=== PATIENT | male | born 1960 | race Caucasian/White ===

== ENCOUNTER 2018-06-18 16:46 | Observation (INO) ==
[2018-06-18] MEDS ORDERED: Vancomycin Inj 1,000 MG in Sodium Chlor 0.9% Inj 250 ML IV.SIG ONE (17:46)
[2018-06-18] MEDS ORDERED: Morphine Inj 4 MG/ML Vial IV.PUSH ONE ×2 (17:46→20:35)
--- NOTE | 2018-06-18 17:59 | ED ---
HPI General Chief complaint: Skin/Abscess/Foreign Body Stated complaint: abscess on L side of neck Time Seen by Provider: 06/18/18 17:41 Source: patient Mode of arrival: ambulatory Limitations: no limitations History of Present Illness HPI narrative: 57yo M with PMH of DM here with c/o left neck abscess for 7 days. Said it started like a pimple but now there is crusting with some pus coming out. Said the redness is spreading and worst today. Denies any fever, chest pain, sob, n/v, abdominal pain, IVDA, trauma, focal weakness or numbness. Related Data Home Medications Medication Instructions Recorded Confirmed gabapentin 0 mg PO TID 06/18/18 06/18/18 insulin aspart U-100 [Novolog 1 sliding scale dose SUBCUT UD 06/18/18 06/18/18 U-100 Insulin aspart] insulin glargine [Lantus U-100 30 unit SUBCUT BID 06/18/18 06/18/18 Insulin] Allergies Allergy/AdvReac Type Severity Reaction Status Date / Time ciprofloxacin [From Cipro] Allergy Anaphylaxis Verified 06/18/18 17:07 Review of Systems ROS: all other systems reviewed are negative [facility] Social History Social History Substance History: No History of Abuse Smoking Status: Never smoker How Often Do You Have a Drink Containing Alcohol: 2 to 4 times a month Recent Travel in [facility] within the Last 8 Weeks: No Recent Out of Country Travel within the Last 8 Weeks: No Exam Narrative Exam Narrative: GENERAL: 57yo M in mild distress. SKIN: +5cm by 9cm erythema with central induration in left anterior neck. There is central crusting and small amount of purulent discharge expressed under the crusting. No fluctuance. HEAD: Atraumatic. Normocephalic. EYES: Pupils equal and round. No scleral icterus. No injection or drainage. ENT: No nasal bleeding or discharge. Mucous membranes pink and moist. NECK: Trachea midline. No JVD. CARDIOVASCULAR: Regular rate and rhythm. No murmur appreciated. RESPIRATORY: No accessory muscle use. Clear to auscultation. Breath sounds equal bilaterally. GASTROINTESTINAL: Abdomen soft, non-tender, nondistended. MUSCULOSKELETAL: No obvious deformities. No clubbing. No cyanosis. No edema. NEUROLOGICAL: Awake and alert. No obvious cranial nerve deficits. Motor grossly within normal limits. Normal speech. PSYCHIATRIC: Appropriate mood and affect; insight and judgment normal. Course Initial Documented Vital Signs Temperature 99.9 F H 06/18/18 17:00 Pulse Rate 98 H 06/18/18 17:00 Respiratory Rate 16 06/18/18 17:00 Blood Pressure 181/87 H 06/18/18 17:00 Pulse Oximetry 96 06/18/18 17:00 Last Documented Vital Signs Temperature 98.4 F 06/18/18 19:52 Pulse Rate 92 H 06/18/18 19:52 Respiratory Rate 18 06/18/18 19:52 Blood Pressure 126/92 H 06/18/18 19:52 Pulse Oximetry 98 06/18/18 19:52 Medical Decision Making MDM Narrative Medical decision making narrative: 57yo M with DM here with abscess and surrounding cellulitis in left anterior neck. HR initially mildly elevated at 98bpm. Temp was 99.9F. There is an area of induration in left anterior neck with no obvious fluctuance on exam. There is purulent discharge expressed from under a scab. Due to the location of the abscess, will obtain labs, CT soft tissue neck with IV contrast to evaluate it. Labs reviewed, no leukocytosis. H /H normal. Mild hyponatremia at 132. Glucose is elevated at 423. Pt given regular insulin 10 units. CO2 normal. Will give IVF. Lactic acid normal at 1.1. CT soft tissue neck showed irregular subcutaneous fluid collection of the left side of neck measuring 1.9 x 2.6 x 3.6cm in size. Skin is thickened and edematous. Fluid collection is superficial to platysma which is also thickened. A mildly engorged vessel, probably a vein, courses through the fluid collection. Given that there is an engorged vessel in the fluid collection, I do not feel comfortable doing a bedside I&D. Pt given vancomycin and pain is more resolved after 1 dose of morphine, will give another one. Given the location of the infection and patient stating that it was spreading rapidly today, will admit for IV antibiotics and plastic consult. Discussed with Dr. Metz and accepted to her service. Medical Screen Exam Complete: Yes Emergency Medical Condition: Yes Differential Diagnosis Differential Diagnosis: Abscess vs. cellulitis vs. sepsis Lab Data Result diagrams: 06/18/18 18:00 06/18/18 18:00 Lab Results 06/18/18 06/18/18 06/18/18 Range/Units 18:00 18:00 18:00 CBC w Diff Slide review pending WBC 8.3 (4.0-11.0) th/mm3 RBC 5.36 (4.50-5.90) mil/mm3 Hgb 13.0 (13.0-17.0) gm/dL Hct 40.3 (39.0-51.0) % MCV 75.1 L (80.0-100.0) fL MCH 24.2 L (27.0-34.0) pg MCHC 32.2 (32.0-36.0) % RDW 13.4 (11.6-17.2) % Plt Count 306 (150-450) th/mm3 MPV 7.5 (7.0-11.0) fL Neut % (Auto) 76.5 H (16.0-70.0) % Lymph % (Auto) 13.9 (9.0-44.0) % [place] % (Auto) 6.3 (0.0-8.0) % Eos % (Auto) 2.1 (0.0-4.0) % Baso % (Auto) 1.2 (0.0-2.0) % Neut # (Auto) 6.3 (1.8-7.7) th/mm3 Lymph # (Auto) 1.2 (1.0-4.8) th/mm3 [place] # (Auto) 0.5 (0.0-0.9) th/mm3 Eos # (Auto) 0.2 (0.0-0.4) th/mm3 Baso # (Auto) 0.1 (0.0-0.2) th/mm3 WBC Differential . Diff Scan Auto diff confirmed Differential Comment . Platelet Estimate Normal (Normal) Platelet Morphology Normal (Normal) PT 9.7 L (9.8-11.6) sec INR 1.0 Ratio APTT 27.9 (23.4-31.7) sec Sodium 132 L (136-145) meq/L Potassium 4.1 (3.5-5.1) meq/L Chloride 97 L (98-107) meq/L Carbon Dioxide 25.7 (21.0-32.0) meq/L Anion Gap 9 (5-15) meq/L BUN 19 H (7-18) mg/dL Creatinine 0.86 (0.60-1.30) mg/dL Estimated GFR Greater than 89 (>89) mL/min POC Glucose (68-110) mg/dl Random Glucose 423 H (74-106) mg/dL Lactic Acid (0.4-2.0) mmol/L Calcium 8.8 (8.5-10.1) mg/dL 06/18/18 06/18/18 Range/Units 18:00 22:31 CBC w Diff WBC (4.0-11.0) th/mm3 RBC (4.50-5.90) mil/mm3 Hgb (13.0-17.0) gm/dL Hct (39.0-51.0) % MCV (80.0-100.0) fL MCH (27.0-34.0) pg MCHC (32.0-36.0) % RDW (11.6-17.2) % Plt Count (150-450) th/mm3 MPV (7.0-11.0) fL Neut % (Auto) (16.0-70.0) % Lymph % (Auto) (9.0-44.0) % [place] % (Auto) (0.0-8.0) % Eos % (Auto) (0.0-4.0) % Baso % (Auto) (0.0-2.0) % Neut # (Auto) (1.8-7.7) th/mm3 Lymph # (Auto) (1.0-4.8) th/mm3 [place] # (Auto) (0.0-0.9) th/mm3 Eos # (Auto) (0.0-0.4) th/mm3 Baso # (Auto) (0.0-0.2) th/mm3 WBC Differential Diff Scan Differential Comment Platelet Estimate (Normal) Platelet Morphology (Normal) PT (9.8-11.6) sec INR Ratio APTT (23.4-31.7) sec Sodium (136-145) meq/L Potassium (3.5-5.1) meq/L Chloride (98-107) meq/L Carbon Dioxide (21.0-32.0) meq/L Anion Gap (5-15) meq/L BUN (7-18) mg/dL Creatinine (0.60-1.30) mg/dL Estimated GFR (>89) mL/min POC Glucose 267 H (68-110) mg/dl Random Glucose (74-106) mg/dL Lactic Acid 1.1 (0.4-2.0) mmol/L Calcium (8.5-10.1) mg/dL Imaging Data Radiologist's impression: Soft Tissue Neck CT 06/18/18 17:46 CONCLUSION: 1. Superficial fluid collection with associated surrounding induration of the left side of the neck as described. CT features are typical of abscess in the proper clinical setting. There is associated mild hyperemia, including a slightly engorged vessel within the collection. 2. Left greater than right carotid atherosclerosis. There is an approximately 50% stenosis of the left common carotid artery. 3. Sphenoid sinusitis. Discharge Plan Discharge Disposition Patient Disposition: ED Admit(ED Internal Use Only) Discharge Order Discharge Orders: ED Use Only Admit Order (Routine); Ordered 06/18/18 Ordered By: Rhonda Lau Discharge Details Diagnosis: Abscess, neck Physicians Team ED Provider: Rhonda Lau Primary Care Provider: Primary Care Eltoni,Archana Attending Provider: Harini Metz Status ED Status: Admitted Observation Patient
[2018-06-18 18:17] LABS: Baso # (Auto) 0.1 th/mm3 (0.0-0.2); Baso % (Auto) 1.2 % (0.0-2.0); Eos # (Auto) 0.2 th/mm3 (0.0-0.4); Eos % (Auto) 2.1 % (0.0-4.0); Hematocrit 40.3 % (39.0-51.0); Lymph # (Auto) 1.2 th/mm3 (1.0-4.8); Lymph % (Auto) 13.9 % (9.0-44.0); Mean Corpuscular HGB Conc 32.2 % (32.0-36.0); Mean Corpuscular Hemoglobin 24.2 pg (27.0-34.0); Mean Corpuscular Volume 75.1 fL (80.0-100.0); Mean Platelet Volume 7.5 fL (7.0-11.0); Mono # (Auto) 0.5 th/mm3 (0.0-0.9); Mono % (Auto) 6.3 % (0.0-8.0); Neut # (Auto) 6.3 th/mm3 (1.8-7.7); Neut % (Auto) 76.5 % (16.0-70.0); Platelet Count 306 th/mm3 (150-450); Red Blood Count 5.36 mil/mm3 (4.50-5.90); Red Cell Distribution Width 13.4 % (11.6-17.2); White Blood Count 8.3 th/mm3 (4.0-11.0)
[2018-06-18 18:22] LABS: Chloride 97 meq/L (98-107); Potassium 4.1 meq/L (3.5-5.1); Sodium 132 meq/L (136-145)
[2018-06-18 18:24] LABS: Calcium 8.8 mg/dL (8.5-10.1)
[2018-06-18 18:27] LABS: Activated Partial Thrombo Time 27.9 sec (23.4-31.7); Prothrombin Time 9.7 sec (9.8-11.6)
[2018-06-18 18:29] LABS: Anion Gap 9 meq/L (5-15); Blood Urea Nitrogen 19 mg/dL (7-18); Carbon Dioxide 25.7 meq/L (21.0-32.0); Glomerular Filtration Rate Greater Than 89 mL/min (>89); Glucose,Random 423 mg/dL (74-106)
[2018-06-18 18:45] LABS: Platelet Estimate Normal (Normal); Platelet Morphology Normal (Normal)
--- NOTE | 2018-06-18 20:07 | CT ---
EXAM DATE: 06/18/2018 7:55 PM EST AGE/SEX: 57 years / Male INDICATIONS: Abscess on left side of neck. CLINICAL DATA: This is the patient's initial encounter. Patient reports that signs and symptoms have been present for 1 day and indicates a pain score of 3/10. MEDICAL/SURGICAL HISTORY: . . RADIATION DOSE: 15.44 CTDI (mGy) COMPARISON: No prior exams available for comparison. TECHNIQUE: Helical acquisition was performed using a multirow detector CT scanner during the adminis tration of 80 ml Omnipaque 350 (iohexol) nonionic water-soluble contrast as a single exam dose. Usi ng automated exposure control and adjustment of the mA and/or kV according to patient size, radiation dose was kept as low as reasonably achievable to obtain optimal diagnostic quality images. DICOM fo rmat image data is available electronically for review and comparison. FINDINGS: There is irregular subcutaneous fluid collection of the left side of the neck that measures approxima tely 1.9 x 2.6 x 3.6 cm in size. Superficial margin of the collection is just beneath the skin. Skin is thickened and edematous. The fluid collection is superficial to platysma which is also thickened. A mildly engorged vessel, probably a vein, courses through the fluid collection, for example series 2 image 66 and series 400 image 51. No masses or lymphadenopathy are demonstrated. There is atherosclerosis of both carotid bifurcations and upper common carotid arteries. An approximately 50% stenosis involves the distal left common escoto tid artery. There is mucoperiosteal thickening of the visualized sphenoid air cells. CONCLUSION: 1. Superficial fluid collection with associated surrounding induration of the left side of the neck as described. CT features are typical of abscess in the proper clinical setting. There is associated mild hyperemia, including a slightly engorged vessel within the collection. 2. Left greater than right carotid atherosclerosis. There is an approximately 50% stenosis of the le ft common carotid artery. 3. Sphenoid sinusitis. Electronically signed by: Mukul Storm MD Board Certified Radiologist 06/18/2018 8:06 PM EST
[2018-06-18] MEDS ORDERED: Morphine Sulfate Inj 2 MG/ML Vial IV.PUSH PRN (20:42)
[2018-06-18] MEDS ORDERED: Vancomycin Consult Pharmacy OTHER PRN (20:42)
[2018-06-18] MEDS ORDERED: Sod Chloride 0.9% Inj 1,000 ML IV.SIG SCH (20:45)
[2018-06-18] MEDS ORDERED: Dextrose 50% in Water 50 ML Vial IV.PUSH PRN (20:49)
[2018-06-18] MEDS ORDERED: Acetaminophen 325 MG Tablet PO PRN (20:49)
[2018-06-18] MEDS ORDERED: Bisacodyl 10 MG Supp RECTAL PRN (20:49)
[2018-06-18] MEDS ORDERED: Gabapentin 300 MG Capsule PO PRN (21:30)
[2018-06-18] MEDS: Insulin Detemir Inj 1,000 UNIT/10 ML Vial SQ SCH (21:39)
[2018-06-18] MEDS: Sod Chloride 0.9% Inj 1,000 ML IV.CONT SCH (23:01)
[2018-06-19] MEDS: Senna/Docusate Sodium 8.6/50 MG Tablet PO SCH ×3 (01:52→21:01)
[2018-06-19] MEDS: Insulin NovoLOG Aspart Correctional Sugar Inj SQ SCH ×5 (01:52→21:01)
[2018-06-19] MEDS: Morphine Inj 4 MG/ML Vial IV.PUSH PRN ×4 (02:36→21:06)
[2018-06-19] MEDS: Gabapentin 300 MG Capsule PO SCH ×3 (08:43→17:09)
[2018-06-19] MEDS: Insulin Detemir Inj 1,000 UNIT/10 ML Vial SQ SCH ×2 (08:43→21:00)
[2018-06-19 09:41] LABS: Baso % (Auto) 0.3 % (0.0-2.0); Eos # (Auto) 0.2 th/mm3 (0.0-0.4); Eos % (Auto) 2.6 % (0.0-4.0); Hematocrit 38.2 % (39.0-51.0); Hemoglobin 12.1 gm/dL (13.0-17.0); Lymph # (Auto) 1.2 th/mm3 (1.0-4.8); Lymph % (Auto) 13.1 % (9.0-44.0); Mean Corpuscular HGB Conc 31.6 % (32.0-36.0); Mean Corpuscular Volume 75.9 fL (80.0-100.0); Mean Platelet Volume 7.9 fL (7.0-11.0); Mono # (Auto) 0.5 th/mm3 (0.0-0.9); Mono % (Auto) 5.9 % (0.0-8.0); Neut # (Auto) 7.3 th/mm3 (1.8-7.7); Neut % (Auto) 78.1 % (16.0-70.0); Platelet Count 295 th/mm3 (150-450); Red Blood Count 5.03 mil/mm3 (4.50-5.90); Red Cell Distribution Width 13.4 % (11.6-17.2); White Blood Count 9.2 th/mm3 (4.0-11.0)
[2018-06-19 10:03] LABS: Platelet Estimate Normal (Normal); Platelet Morphology Normal (Normal)
[2018-06-19 10:06] LABS: Chloride 97 meq/L (98-107); Potassium 3.9 meq/L (3.5-5.1); Sodium 132 meq/L (136-145)
[2018-06-19 10:10] LABS: Albumin 2.8 g/dL (3.4-5.0); Anion Gap 10 meq/L (5-15); Calcium 8.1 mg/dL (8.5-10.1); Carbon Dioxide 25.5 meq/L (21.0-32.0)
[2018-06-19 10:30] LABS: Alanine Aminotransferase 28 U/L (12-78); Alkaline Phosphatase 108 U/L (45-117); Aspartate Aminotransferase 13 U/L (15-37); Blood Urea Nitrogen 13 mg/dL (7-18); Glomerular Filtration Rate Greater Than 89 mL/min (>89); Glucose,Random 266 mg/dL (74-106); Total Protein 6.8 g/dL (6.4-8.2)
[2018-06-19] MEDS: Sod Chloride 0.9% Inj 1,000 ML IV.CONT SCH ×2 (11:55→22:03)
[2018-06-19] MEDS: Vancomycin Inj 1,500 MG in Sodium Chlor 0.9% Inj 500 ML IV.SIG SCH ×2 (12:36→22:03)
--- NOTE | 2018-06-19 12:40 | P.HPIM ---
History of Present Illness Primary Care Physician: No Primary Care Physician History of Present Illness: 57yo M w h/o DM presented with c/o left neck abscess for 7 days. It started out as a pimple which he tried to pop,but nothing came out, subsequently it crusted and increased in size with associated redness and pain.Redness has been spreading upwards. He denies fever/chills. No h/o IVDU. ROS is negative. On presentation to ER, patient noted to be hyperglycemic at 423mg/dl, mild hyponatremia, mild microcytic anemia. CT neck revealed an abscess. IV Vanc started and patient admitted to med-surg floor. Review of Systems Review of Systems: all other systems reviewed are negative [facility] Medical History Medical History Diabetes (Acute) Social History Social History Substance History: No History of Abuse Second Hand Smoke Exposure: No Smoking Status: Never smoker How Often Do You Have a Drink Containing Alcohol: Monthly or less Recent Travel in [facility] within the Last 8 Weeks: No Recent Out of Country Travel within the Last 8 Weeks: No Immunization History Tetanus Immunization: <5 Years Medications and Allergies Allergies Allergy/AdvReac Type Severity Reaction Status Date / Time ciprofloxacin [From Cipro] Allergy Anaphylaxis Verified 06/18/18 17:07 Home Medications Medication Instructions Recorded Confirmed Type gabapentin 0 mg PO TID 06/18/18 06/18/18 History insulin aspart U-100 [Novolog 1 sliding scale dose SUBCUT UD 06/18/18 06/18/18 History U-100 Insulin aspart] insulin glargine [Lantus U-100 30 unit SUBCUT BID 06/18/18 06/18/18 History Insulin] Active Medications: Active Medications Acetaminophen (Tylenol) 650 mg PO Q4H PRN PRN Reason: Temp > 100.4 Hydrocodone Bitart/Acetaminophen ([place] 5/325) 1 tab PO Q4H PRN PRN Reason: PAIN SCALE 3 TO 5 Last Admin: 06/19/18 11:54 Dose: 1 tab Al Hydroxide/Mg Hydroxide (Milk Of Magnesia Liq) 30 ml PO Q12H PRN PRN Reason: Mild Constipation Bisacodyl (Dulcolax Supp) 10 mg RECTAL DAILY PRN PRN Reason: SEVERE CONSITIPATION Dextrose (D50w Vial) 50 ml IV.PUSH UNSCH PRN PRN Reason: PER HYPOGLYCEMIA PROTOCOL Gabapentin (Neurontin) 300 mg PO TID [facility] Last Admin: 06/19/18 11:59 Dose: 300 mg Glucagon (Glucagon Inj) 1 mg OTHER PRN PRN PRN Reason: for Hypoglycemia Protocol Sodium Chloride (Ns Inj) 1,000 mls @ 100 mls/hr IV.CONT .Q10H [facility] Last Admin: 06/19/18 11:55 Dose: 100 mls/hr Vancomycin HCl 1,500 mg/ (Sodium Chloride) 515 mls @ 250 mls/hr IV.SIG Q12H [facility] Insulin Aspart (Novolog Insulin Correctional Sugar Inj) 0 unit SQ ACHS [facility]; Protocol Last Admin: 06/19/18 11:54 Dose: 5 unit Insulin Detemir (Levemir Inj) 30 unit SQ BID [facility] Last Admin: 06/19/18 08:43 Dose: 30 unit Lactulose (Lactulose Liq) 30 ml PO DAILY PRN PRN Reason: SEVERE CONSITIPATION Miscellaneous Information ([facility] Ordered Lab Info) 0 each OTHER ONCE ONE Stop: 06/20/18 22:46 Morphine Sulfate (Morphine Inj) 2 mg IV.PUSH Q4H PRN PRN Reason: PAIN SCALE 6 TO 10 Last Admin: 06/19/18 09:05 Dose: 2 mg Ondansetron HCl (Zofran Inj) 4 mg IV.PUSH Q6H PRN PRN Reason: NAUSEA OR VOMITING Pharmacy Profile Note (Vancomycin Consult Pharmacy) 1 each OTHER UNSCH PRN PRN Reason: Pharmacy to dose Senna/Docusate Sodium (Marlys-Colace) 1 tab PO BID [facility] Last Admin: 06/19/18 09:05 Dose: Not Given Sennosides (Senokot) 17.2 mg PO Q12H PRN PRN Reason: Moderate Constipation Sodium Chloride (Ns Flush) 2 ml IV.FLUSH BID [facility] Last Admin: 06/19/18 09:05 Dose: Not Given Sodium Chloride (Ns Flush) 2 ml IV.FLUSH PRN PRN PRN Reason: FLUSH AFTER USING IV ACCESS Physical Exam Vital signs: Last Vital Signs Temp 98.7 F 06/19/18 08:00 Pulse 90 06/19/18 08:00 Resp 21 06/19/18 08:00 BP 97/68 L 06/19/18 08:00 Pulse Ox 97 06/19/18 08:00 Intake & Output 06/17/18 06/18/18 06/19/18 06/20/18 06:59 06:59 06:59 06:59 Intake Total 730 / 730 1480 / 1480 Output Total 1500 / 1500 300 / 300 Balance -770 / -770 1180 / 1180 Weight 85 kg Narrative: GENERAL: This is a well-nourished, well-developed patient, in no apparent distress. HEENT:not pale,anicteric NECK: lt anterior distal neck with a 4cm area of erythema,and induration, central crusting,tender to palpatation. no discharge noted. CARDIOVASCULAR: Regular rate and rhythm without murmurs, gallops, or rubs. RESPIRATORY: Clear to auscultation. Breath sounds equal bilaterally. No wheezes , rales, or rhonchi. GASTROINTESTINAL: Abdomen soft, non-tender, nondistended. Normal active bowel sounds MUSCULOSKELETAL: Extremities without clubbing, cyanosis, or edema. NEURO: Alert & Oriented x4 to person, place, time, situation. Moves all ext x4 Results Labs CBC & Chem 7: 06/19/18 08:45 06/19/18 08:45 Imaging Impressions Soft Tissue Neck CT 06/18/18 17:46 CONCLUSION: 1. Superficial fluid collection with associated surrounding induration of the left side of the neck as described. CT features are typical of abscess in the proper clinical setting. There is associated mild hyperemia, including a slightly engorged vessel within the collection. 2. Left greater than right carotid atherosclerosis. There is an approximately 50% stenosis of the left common carotid artery. 3. Sphenoid sinusitis. Caprini VTE Risk Assessment Caprini VTE Risk Assessment: No/Low Risk (score <= 1) Caprini Risk Assessment Model: Point Value = 1 Point Value = 2 Point Value = 3 Point Value = 5 Age 41-60 Minor surgery BMI > 25 kg/m2 Swollen legs Varicose veins or History of unexplained or recurrent spontaneous Oral contraceptives or hormone replacement Sepsis (< 1 month) Serious lung disease, including pneumonia (< 1 month) Abnormal pulmonary function Acute myocardial infarction Congestive heart failure (< 1 month) History of inflammatory bowel disease Medical patient at bed rest Age 61-74 Arthroscopic surgery Major open surgery (> 45 min) Laparoscopic surgery (> 45 min) Malignancy Confined to bed (> 72 hours) Immobilizing plaster cast Central venous access Age >= 75 History of VTE Family history of VTE Factor V Leiden Prothrombin [id number] Lupus anticoagulant Anticardiolipin antibodies Elevated serum homocysteine Heparin-induced thrombocytopenia Other congenital or acquired thrombophilia Stroke (< 1 month) Elective arthroplasty Hip, pelvis, or leg fracture Acute spinal cord injury (< 1 month) Prophylaxis Regimen: Total Risk Factor Score Risk Level Prophylaxis Regimen 0-1 Low Early ambulation 2 Moderate Order ONE of the following: *Sequential Compression Device (SCD) *Heparin 5000 units SQ BID 3-4 Higher Order ONE of the following medications: *Heparin 5000 units SQ TID *Enoxaparin/Lovenox 40 mg SQ daily (WT < 150 kg, CrCl > 30 mL/min) *Enoxaparin/Lovenox 30 mg SQ daily (WT < 150 kg, CrCl > 10-29 mL/min) *Enoxaparin/Lovenox 30 mg SQ BID (WT < 150 kg, CrCl > 30 mL/min) AND/OR *Sequential Compression Device (SCD) 5 or more Highest Order ONE of the following medications: *Heparin 5000 units SQ TID (Preferred with Epidurals) *Enoxaparin/Lovenox 40 mg SQ daily (WT < 150 kg, CrCl > 30 mL/min) *Enoxaparin/Lovenox 30 mg SQ daily (WT < 150 kg, CrCl > 10-29 mL/min) *Enoxaparin/Lovenox 30 mg SQ BID (WT < 150 kg, CrCl > 30 mL/min) AND *Sequential Compression Device (SCD) Assessment and Plan Plan 57yo M with h/o DM who presented with lt anterior neck abscess for 1 week. 1.Anterior neck abscess- consult plastics,apparently they do not deal with this, suggested oms or ent for I&d, consulted OMS, responded and informed me that as per hospital policy plastics should do I&D, he suggested I consult ENT and ID. Keep on IV Vancomycin. obtain cultures. 2.Uncontrolled DM- Blood glucose in 200's range this morning. Levemir 30 units BID started this morning,monitor glucose trends and adjust accordingly. check A1C keep on SSI. DVT ppx-low risk, ambulate. H&P: Quality VTE Deep Vein Thrombosis/Pulmonary Embolism Present on Admission: No
--- NOTE | 2018-06-19 14:07 | MB ---
cc: Rc Manzano DMD DATE: 06/19/[address] Roman/ consult dictation based on ct scan HISTORY OF PRESENT ILLNESS: This is a 57-year-old man who apparently has had edema left neck for several days. The patient reports it started like a pimple and had some pus and was crusting. He was admitted to the hospital. Discussed with attending. After review of the scan, Dr. Roman given the location of into the neck, there is no odontogenic source of this infection. Most likely it is of MRSA associated with popping the pimple. Advised to consult plastics as per the hospital protocol. He informed me that plastics declined. Advised to consult ENT. Advised to consult infectious diseases also. Advised Dr. Roman to keep me advised of the patient's status. The abscess is on the left side of the neck and appears that it is raised, approximately 2 cm x about 3.5 mm collection right beneath the superficial area of the skin on the left side. There appears to be also a vessel that is going through the collection, so I advised to continue the antibiotics. Consult ID and ENT. Rc Manzano DMD RT/lamont/fred , 12:40 PM , 12:45 PM MTDD
[2018-06-19 14:41] LABS: Hemoglobin A1c 14.3 % (4.3-6.0)
[2018-06-20] MEDS: Morphine Inj 4 MG/ML Vial IV.PUSH PRN (01:47)
[2018-06-20] MEDS: Sod Chloride 0.9% Inj 1,000 ML IV.CONT SCH ×3 (04:45→20:36)
[2018-06-20] MEDS: Insulin Detemir Inj 1,000 UNIT/10 ML Vial SQ SCH ×3 (08:32→20:35)
[2018-06-20] MEDS: Gabapentin 300 MG Capsule PO SCH ×3 (08:32→17:21)
[2018-06-20] MEDS: Senna/Docusate Sodium 8.6/50 MG Tablet PO SCH ×3 (08:33→20:33)
[2018-06-20] MEDS: Insulin NovoLOG Aspart Correctional Sugar Inj SQ SCH ×4 (08:33→20:35)
--- NOTE | 2018-06-20 11:44 | P.PNIM ---
Subjective Interval history: no new complaints. Physical Exam Vital signs: Last Vital Signs Temp 98.1 F 06/20/18 07:58 Pulse 89 06/20/18 07:58 Resp 18 06/20/18 07:58 BP 153/85 H 06/20/18 07:58 Pulse Ox 96 06/20/18 07:58 Intake & Output 06/18/18 06/19/18 06/20/18 06/21/18 06:59 06:59 06:59 06:59 Intake Total 730 / 730 4770 / 4770 1000 / 1000 Output Total 1500 / 1500 1200 / 1200 Balance -770 / -770 3570 / 3570 1000 / 1000 Weight 85 kg Narrative: GENERAL: This is a well-nourished, well-developed patient, in no apparent distress. HEENT:not pale,anicteric NECK: lt anterior distal neck with a 4cm area of erythema,and induration, central crusting,tender to palpatation. no discharge noted. CARDIOVASCULAR: Regular rate and rhythm without murmurs, gallops, or rubs. RESPIRATORY: Clear to auscultation. Breath sounds equal bilaterally. No wheezes , rales, or rhonchi. GASTROINTESTINAL: Abdomen soft, non-tender, nondistended. Normal active bowel sounds MUSCULOSKELETAL: Extremities without clubbing, cyanosis, or edema. NEURO: Alert & Oriented x4 to person, place, time, situation. Moves all ext x4 Results Labs CBC & Chem 7: 06/19/18 08:45 06/19/18 08:45 Labs: Microbiology 06/18/18 18:00 Blood - Peripheral Aerobic Blood Culture - Preliminary No growth in 2 days 06/18/18 18:00 Blood - Peripheral Anaerobic Blood Culture - Preliminary No growth in 2 days 06/18/18 17:55 Blood - Peripheral Aerobic Blood Culture - Preliminary No growth in 2 days 06/18/18 17:55 Blood - Peripheral Anaerobic Blood Culture - Preliminary No growth in 2 days Assessment and Plan Plan 57yo M with h/o DM who presented with lt anterior neck abscess for 1 week. 1.Anterior neck abscess- consult plastics,apparently they do not deal with this, suggested oms or ent for I&d, consulted OMS, responded and informed me that as per hospital policy plastics should do I&D, he suggested I consult ENT and ID. blood cultures negative to date. ENT consulted-pending. Keep on IV Vancomycin,added Zosyn. obtain wound cultures. 5:28 pm d/w ENT ,recommends giving 8mg IV Dexamethasone today. He will evaluate patient in the morning to consider drainage. 2.Uncontrolled DM- A1C 14.3% Blood glucose in 195-323 range this morning. required 20 extra units of sliding scale coverage Increased Levemir to 40 units BID . keep on SSI. DVT ppx-low risk, ambulate. Progress Note: Quality VTE Deep Vein Thrombosis/Pulmonary Embolism Present on Admission: No
[2018-06-20] MEDS: Vancomycin Inj 1,500 MG in Sodium Chlor 0.9% Inj 500 ML IV.SIG SCH ×2 (12:06→22:48)
[2018-06-20] MEDS: Piperacil/Tazo 3.375 GM Premix 3.375 GM/50 ML PIGGYBACK IV.SIG SCH ×2 (12:06→19:55)
[2018-06-20] MEDS ORDERED: Pharmacy Ordered Lab Info OTHER ONE (22:45)
[2018-06-21] MEDS: Sod Chloride 0.9% Inj 1,000 ML IV.CONT SCH ×2 (00:31→11:48)
[2018-06-21] MEDS: Piperacil/Tazo 3.375 GM Premix 3.375 GM/50 ML PIGGYBACK IV.SIG SCH ×2 (03:47→12:04)
--- NOTE | 2018-06-21 08:06 | MD ---
cc: Shai Lr MD DATE OF DISCHARGE: LOCATION: [facility], room 8325. HISTORY OF PRESENT ILLNESS: This is a 57-year-old gentleman with history of diabetes and a neck process, which has been ongoing for 5-7 days with slight resolution with IV antibiotics. PHYSICAL EXAMINATION: Physical exam today reveals: FACE: WNL. EARS: WNL. NASAL CAVITY: WNL. ORAL CAVITY: WNL. NECK: Reveals a very superficial to the platysma and sternocleidomastoid muscle in the low neck on the left side with mild surrounding erythema, fluctuance. DIAGNOSTIC DATA: CT consistent with a supraplatysmal superficial abscess approximately 3 cm. IMPRESSION AND PLAN: Skin structure abscess, furuncle likely in a diabetic. Will require incision and drainage, more appropriate for general surgery. No deep neck involvement. General surgery consulted. MD DAVINA Dunbar/marzena , 07:50 AM , 07:56 AM
[2018-06-21] MEDS: Insulin Detemir Inj 1,000 UNIT/10 ML Vial SQ SCH ×2 (08:07→20:44)
[2018-06-21] MEDS: Insulin NovoLOG Aspart Correctional Sugar Inj SQ SCH ×4 (08:07→20:44)
[2018-06-21] MEDS: Gabapentin 300 MG Capsule PO SCH ×3 (08:08→17:21)
[2018-06-21] MEDS: Senna/Docusate Sodium 8.6/50 MG Tablet PO SCH ×2 (09:55→20:45)
--- NOTE | 2018-06-21 10:23 | P.PNIM ---
Subjective Interval history: f/u neck pain/mass afebrile, left lateral neck pain and swelling better, no SOB, no N/V Physical Exam Vital signs: Last Vital Signs Temp 96.3 F L 06/21/18 08:00 Pulse 84 06/21/18 08:00 Resp 18 06/21/18 09:01 BP 158/93 H 06/21/18 08:00 Pulse Ox 96 06/21/18 08:00 Intake & Output 06/19/18 06/20/18 06/21/18 06/22/18 06:59 06:59 06:59 06:59 Intake Total 730 / 730 4770 / 4770 4190 / 4190 Output Total 1500 / 1500 1200 / 1200 2650 / 2650 Balance -770 / -770 3570 / 3570 1540 / 1540 Weight 85 kg 85.8 kg Narrative: GENERAL: This is a well-nourished, well-developed patient, in no apparent distress. NECK:L anterolateral neck with a 4cm area of erythema,and induration,central crusting, mildly tender to palpatation, swollen, doughy. no discharge noted. CARDIOVASCULAR: Regular rate and rhythm without murmurs, gallops, or rubs. RESPIRATORY: Clear to auscultation. Breath sounds equal bilaterally. No wheezes , rales, or rhonchi. GASTROINTESTINAL: Abdomen soft, non-tender, nondistended. Normal active bowel sounds MUSCULOSKELETAL: Extremities without clubbing, cyanosis, or edema. NEURO: Alert & Oriented x4 to person, place, time, situation. Moves all ext x4 Results Labs CBC & Chem 7: 06/19/18 08:45 06/19/18 08:45 Labs: Microbiology 06/20/18 10:10 Abscess - Neck Gram Stain - Final 06/18/18 18:00 Blood - Peripheral Aerobic Blood Culture - Preliminary No growth in 2 days 06/18/18 18:00 Blood - Peripheral Anaerobic Blood Culture - Preliminary No growth in 2 days 06/18/18 17:55 Blood - Peripheral Aerobic Blood Culture - Preliminary No growth in 2 days 06/18/18 17:55 Blood - Peripheral Anaerobic Blood Culture - Preliminary No growth in 2 days Assessment and Plan Plan 57yo M with h/o DM who presented with lt anterior neck abscess for 1 week. Anterior neck abscess- Plastic initially consulted, apparently they do not deal with this, suggested ENT/OMS for I&d, consulted OMS, responded and informed me that as per hospital policy plastics should do I&D, he suggested consult ENT and ID. Dr. Lr saw the patient and recommened gen surgery consultation. Blood culture negative to date. Continue vancomycin and Zosyn. Patient given Decadron [address] Lr. Cont pain control , d/c IVF check BMP tomorrow. Uncontrolled DM- A1C 14.3% BG is in the 300s. Levemir increased to 40 units twice a day, sliding scale insulin. Monitor for now. Adjust tomorrow as needed. DVT ppx-low risk, ambulate. Progress Note: Quality VTE Deep Vein Thrombosis/Pulmonary Embolism Present on Admission: No
[2018-06-21] MEDS: Vancomycin Inj 1,750 MG in Sodium Chlor 0.9% Inj 500 ML IV.SIG SCH (12:05)
--- NOTE | 2018-06-21 12:57 | P.CONGS ---
[facility] Gen Surgery Consult Note Consult date: 06/21/18 Narrative: 57 yo M with left neck abscess which began around one week ago. He is on vancomycin and zosyn. WBC is nml and micro from wound culture is growing MRSA. He does not have any problems with breathing, swallowing, or speaking. He was noted to have uncontrolled DM on admission. CT neck showed superficial fluid collection in left neck. Review of Systems All other systems reviewed negative except as stated in [facility] - History History Provided By: Patient - Medical History Medical History: Medical History (Last Updated 06/19/18 @ 12:26 by David Roman MD) Diabetes - Tobacco History Second Hand Smoke Exposure: No Tobacco Use In Past 30 Days: No Smoking Status: Never smoker - Alcohol History How Often Do You Have a Drink Containing Alcohol: Monthly or less - Substance Use History Substance History: No History of Abuse - Travel History Recent Travel in the [place] Within the Last 8 Weeks: No Recent Travel Out of the Country Within the Last 8 Weeks: No - Immunization History Tetanus Immunization: <5 Years Medications and Allergies Active Medications: Active Medications Acetaminophen (Tylenol) 650 mg PO Q4H PRN PRN Reason: Temp > 100.4 Hydrocodone Bitart/Acetaminophen ([place] 5/325) 2 tab PO Q4H PRN PRN Reason: PAIN SCALE 6 TO 10 Last Admin: 06/21/18 08:08 Dose: 2 tab Al Hydroxide/Mg Hydroxide (Milk Of Magnhal Liq) 30 ml PO Q12H PRN PRN Reason: Mild Constipation Bisacodyl (Dulcolax Supp) 10 mg RECTAL DAILY PRN PRN Reason: SEVERE CONSITIPATION Dextrose (D50w Vial) 50 ml IV.PUSH UNSCH PRN PRN Reason: PER HYPOGLYCEMIA PROTOCOL Gabapentin (Neurontin) 300 mg PO TID [facility] Last Admin: 06/21/18 12:04 Dose: 300 mg Glucagon (Glucagon Inj) 1 mg OTHER PRN PRN PRN Reason: for Hypoglycemia Protocol Piperacillin/Tazobactam/Dextrose (Zosyn 3.375 Gm Premix) 3.375 gm in 50 mls @ 100 mls/hr IV.SIG Q8H [facility] Last Admin: 06/21/18 12:04 Dose: 100 mls/hr Vancomycin HCl 1,750 mg/ (Sodium Chloride) 517.5 mls @ 250 mls/hr IV.SIG Q12H [facility] Last Admin: 06/21/18 12:05 Dose: 250 mls/hr Insulin Aspart (Novolog Insulin Correctional Sugar Inj) 0 unit SQ ACHS [facility]; Protocol Last Admin: 06/21/18 12:06 Dose: 3 unit Insulin Detemir (Levemir Inj) 40 unit SQ BID [facility] Last Admin: 06/21/18 08:07 Dose: 40 unit Lactulose (Lactulose Liq) 30 ml PO DAILY PRN PRN Reason: SEVERE CONSITIPATION Miscellaneous Information ([facility] Ordered Lab Info) 0 each OTHER ONCE ONE Stop: 06/22/18 22:46 Ondansetron HCl (Zofran Inj) 4 mg IV.PUSH Q6H PRN PRN Reason: NAUSEA OR VOMITING Last Admin: 06/20/18 22:48 Dose: 4 mg Pharmacy Profile Note (Vancomycin Consult Pharmacy) 1 each OTHER UNSCH PRN PRN Reason: Pharmacy to dose Senna/Docusate Sodium (Marlys-Colace) 1 tab PO BID [facility] Last Admin: 06/21/18 09:55 Dose: Not Given Sennosides (Senokot) 17.2 mg PO Q12H PRN PRN Reason: Moderate Constipation Sodium Chloride (Ns Flush) 2 ml IV.FLUSH BID [facility] Last Admin: 06/21/18 08:09 Dose: Not Given Sodium Chloride (Ns Flush) 2 ml IV.FLUSH PRN PRN PRN Reason: FLUSH AFTER USING IV ACCESS Last Admin: 06/20/18 22:49 Dose: 2 ml Allergies Allergy/AdvReac Type Severity Reaction Status Date / Time ciprofloxacin [From Cipro] Allergy Anaphylaxis Verified 06/18/18 17:07 Home Medications Medication Instructions Recorded Confirmed Type gabapentin 0 mg PO TID 06/18/18 06/18/18 History insulin aspart U-100 [Novolog 1 sliding scale dose SUBCUT UD 06/18/18 06/18/18 History U-100 Insulin aspart] insulin glargine [Lantus U-100 30 unit SUBCUT BID 06/18/18 06/18/18 History Insulin] Exam Vital signs: Vital Signs 06/20/18 16:00 06/20/18 20:00 06/21/18 00:00 Temperature 97.6 F 98.1 F 97.2 F L Pulse Rate 84 82 75 Respiratory Rate 21 18 18 Blood Pressure 133/65 116/58 L 123/67 Pulse Oximetry 95 97 95 06/21/18 08:00 06/21/18 08:50 06/21/18 09:01 Temperature 96.3 F L Pulse Rate 84 Respiratory Rate 18 18 18 Blood Pressure 158/93 H Pulse Oximetry 96 06/21/18 12:00 Temperature 96.3 F L Pulse Rate 89 Respiratory Rate 16 Blood Pressure 133/73 Pulse Oximetry 96 Intake & Output 06/20/18 06/21/18 06/21/18 18:59 06:59 18:59 Intake Total 2385 / 2385 1805 / 1805 1000 / 1000 Output Total 1150 / 1150 1500 / 1500 Balance 1235 / 1235 305 / 305 1000 / 1000 Weight 85.8 kg Intake: IV 1565 / 1565 1565 / 1565 1000 / 1000 NS Inj 1,000 ML @ 100 mls/hr IV 1000 / 1000 950 / 950 1000 / 1000 .CONT .Q10H [facility] Rx#:[id number] Zosyn 3.375 GM Premix 3.375 gm 50 / 50 100 / 100 In 50 ml @ 100 mls/hr IV.SIG Q8H [facility] Rx#:[id number] Vancomycin Inj 1,500 MG In NS 515 / 515 515 / 515 Inj 500 ML @ 250 mls/hr IV.SIG Q12H [facility] Rx#:[id number] Oral 820 / 820 240 / 240 Output: Urine 1150 / 1150 1500 / 1500 Other: Date of Last Bowel Movement 06/20/18 Narrative: GENERAL: Awake and alert. No acute distress. Cooperative. HEAD: Normocephalic. Atraumatic. EYES: Pupils equal round and reactive to light bilaterally. No scleral icterus. ENT: Moist oral mucosa. NECK: Trachea midline. Left side neck approx 3x6cm area of induration with fluctuance in midportion and 1x1 cm area necrotic tissue. CHEST: Nonlabored breathing. No respiratory distress. CARDIOVASCULAR: Regular rate and rhythm. EXTREMITIES: No cyanosis or edema. SKIN: Warm, dry, nonjaundiced. Results - Labs 06/19/18 08:45 06/19/18 08:45 Laboratory Results - last 24 hr 06/20/18 06/20/18 06/20/18 16:47 20:02 22:40 POC Glucose 278 H 301 H Vancomycin Trough 11.2 H 06/21/18 06/21/18 07:22 11:22 POC Glucose 199 H 205 H Vancomycin Trough - Imaging Imaging: ITS Impressions Soft Tissue Neck CT 06/18/18 17:46 CONCLUSION: 1. Superficial fluid collection with associated surrounding induration of the left side of the neck as described. CT features are typical of abscess in the proper clinical setting. There is associated mild hyperemia, including a slightly engorged vessel within the collection. 2. Left greater than right carotid atherosclerosis. There is an approximately 50% stenosis of the left common carotid artery. 3. Sphenoid sinusitis. Additional studies: CT neck images and report reviewed Assessment and Plan - Assessment (1) Abscess, neck Code(s): L02.11 - Cutaneous abscess of neck Status: Acute - Plan Plan to proceed with incision and drainage of neck abscess in OR tomorrow morning. He has eaten lunch today. Continue IV vancomycin. Discussed in detail with patient and he desires to proceed.
[2018-06-22] MEDS: Piperacil/Tazo 3.375 GM Premix 3.375 GM/50 ML PIGGYBACK IV.SIG SCH ×4 (00:07→22:04)
[2018-06-22] MEDS: Vancomycin Inj 1,750 MG in Sodium Chlor 0.9% Inj 500 ML IV.SIG SCH ×2 (00:08→11:44)
[2018-06-22 05:48] LABS: Anion Gap 5 meq/L (5-15); Blood Urea Nitrogen 13 mg/dL (7-18); Calcium 8.7 mg/dL (8.5-10.1); Carbon Dioxide 30.8 meq/L (21.0-32.0); Chloride 104 meq/L (98-107); Glomerular Filtration Rate Greater Than 89 mL/min (>89); Glucose,Random 178 mg/dL (74-106); Potassium 4.4 meq/L (3.5-5.1); Sodium 140 meq/L (136-145)
[2018-06-22] MEDS ORDERED: Bupivacaine/Epinephrine PF Inj 0.5% 30 ML Vial ONE (07:31)
[2018-06-22] MEDS: Insulin NovoLOG Aspart Correctional Sugar Inj SQ SCH ×4 (07:33→22:05)
--- NOTE | 2018-06-22 08:16 | P.OP ---
- Preoperative Diagnosis (1) Abscess, neck - Postoperative Diagnosis (1) Abscess, neck Date of procedure: 06/22/18 Procedure: Incision and drainage superficial left neck abscess Anesthesia: SALOA Surgeon: Jostin Oropeza MD Groundskeeping Maintenance: Jaida Estimated blood loss (mL): 5 Operation and Findings: Procedure in detail: Patient was taken to the operating room placed in supine position. General endotracheal anesthesia was induced. The left neck was prepped and draped in usual sterile fashion. Surgical timeout was performed to verify correct patient procedure and site. Local anesthetic was injected in the skin and subcutaneous tissue overlying the left neck abscess. An approximately 3 cm incision was made including excision of a small portion of necrotic tissue. There was underlying moderate amount of pus which was drained. All loculations were broken up. This abscess was superficial to the platysma. The cavity was irrigated and iodoform packing was placed. Sterile dressing was applied.
[2018-06-22] MEDS ORDERED: fentaNYL Citrate Inj 100 MCG/2 ML Ampul ONE (08:31)
[2018-06-22] MEDS ORDERED: *Meperidine Inj 25 MG/ML Vial PERIprocedural Use ONLY ONE (08:34)
[2018-06-22] MEDS: Gabapentin 300 MG Capsule PO SCH ×3 (09:41→17:59)
[2018-06-22] MEDS: Insulin Detemir Inj 1,000 UNIT/10 ML Vial SQ SCH ×2 (09:42→22:05)
[2018-06-22] MEDS: Senna/Docusate Sodium 8.6/50 MG Tablet PO SCH ×2 (09:42→22:06)
--- NOTE | 2018-06-22 11:34 | ECG ---
Date Performed: 06/22/2018 Time Performed: 07:15:12 PTAGE: 57 years EKG: Sinus rhythm MARKED LEFT AXIS DEVIATION POSSIBLE ANTERIOR MYOCARDIAL INFARCTION , OF INDETERMINATE AGE POSSIBLE I NFERIOR MYOCARDIAL INFARCTION , PROBABLY OLD ABNORMAL ECG NO PREVIOUS TRACING DOCTOR: Luis Antonio Vasques Interpretating Date/Time 06/22/2018 11:30:28
--- NOTE | 2018-06-22 13:25 | P.PNIM ---
Subjective Interval history: Nursing denies any acute changes overnight. Patient himself is very frustrated with his meal as it is not as he ordered. Says he has not seen a PCP yet this year. Says he just got started back on insulin about 1.5 weeks ago. He says he is fully aware of his A1c being highly uncontrolled. Physical Exam Vital signs: Vital Signs 06/21/18 16:00 06/21/18 20:00 06/22/18 00:00 Temperature 98.1 F 98.1 F 98.0 F Pulse Rate 85 80 72 Respiratory Rate 18 18 18 Blood Pressure 135/66 131/65 126/68 Pulse Oximetry 95 97 97 06/22/18 05:37 06/22/18 06:34 06/22/18 06:40 Temperature 97.3 F L 97.7 F Pulse Rate 72 78 Respiratory Rate 22 18 14 Blood Pressure 127/96 H 168/82 H Pulse Oximetry 97 98 06/22/18 08:26 06/22/18 08:30 06/22/18 08:45 Temperature 98 F Pulse Rate 74 70 73 Respiratory Rate 13 12 14 Blood Pressure 93/60 L 98/57 L 111/66 Pulse Oximetry 95 96 96 06/22/18 08:57 06/22/18 09:00 06/22/18 09:15 Temperature 98 F Pulse Rate 72 70 Respiratory Rate 20 20 Blood Pressure 106/63 120/63 Pulse Oximetry 96 97 96 06/22/18 09:38 06/22/18 12:00 Temperature 98.6 F 97.9 F Pulse Rate 76 73 Respiratory Rate 19 18 Blood Pressure 112/65 145/79 H Pulse Oximetry 96 99 Intake & Output 06/21/18 06/22/18 06/22/18 18:59 06:59 18:59 Intake Total 7.5 / 2067.5 617.5 / 617.5 550 / 550 Output Total 5 / 5 Balance 7.5 / 2066.5 617.5 / 617.5 545 / 545 Weight 87.9 kg Intake: IV 1567.5 / 1567.5 617.5 / 617.5 50 / 50 NS Inj 1,000 ML @ 100 mls/hr IV 1000 / 1000 .CONT .Q10H [facility] Rx#:[id number] Zosyn 3.375 GM Premix 3.375 gm 50 / 50 100 / 100 50 / 50 In 50 ml @ 100 mls/hr IV.SIG Q8H [facility] Rx#:[id number] Vancomycin Inj 1,750 MG In NS 517.5 / 517.5 517.5 / 517.5 Inj 500 ML @ 250 mls/hr IV.SIG Q12H [facility] Rx#:[id number] Oral 500 / 500 Anesthesia Amount 500 / 500 Output: Estimated Blood Loss 5 / 5 Other: # Voids 2 2 Narrative: Packing in place over surgical incision over left neck, with some underlying edema Has intact range of motion of the neck otherwise Clear lungs bilaterally, unlabored breathing Heart sounds regular rate and rhythm Awake alert, no acute distress Results - Labs CBC & Chem 7: 06/19/18 08:45 06/22/18 04:42 Laboratory Results - last 24 hr 06/21/18 06/21/18 06/22/18 16:28 20:41 04:42 Sodium 140 Potassium 4.4 Chloride 104 Carbon Dioxide 30.8 Anion Gap 5 BUN 13 Creatinine 0.76 Estimated GFR Greater than 89 POC Glucose 274 H 301 H Random Glucose 178 H Calcium 8.7 06/22/18 06/22/18 07:28 11:44 Sodium Potassium Chloride Carbon Dioxide Anion Gap BUN Creatinine Estimated GFR POC Glucose 135 H 127 H Random Glucose Calcium Microbiology 06/18/18 18:00 Blood - Peripheral Aerobic Blood Culture - Preliminary No growth in 4 days 06/18/18 18:00 Blood - Peripheral Anaerobic Blood Culture - Preliminary No growth in 4 days 06/18/18 17:55 Blood - Peripheral Aerobic Blood Culture - Preliminary No growth in 4 days 06/18/18 17:55 Blood - Peripheral Anaerobic Blood Culture - Preliminary No growth in 4 days 06/20/18 10:10 Abscess - Neck Gram Stain - Final 06/20/18 10:10 Abscess - Neck Wound Culture - Final S. aureus MRSA Assessment and Plan - Plan 57yo M with h/o DM who presented with lt anterior neck abscess for 1 week. Anterior neck abscess- -As/P I&D by GEN search on 06/22. -Growing MRSA, on vancomycin, stop zosyn, upon discharge switch over to doxycycline as pt dislikes bactrim due to S/Es. -Decadron per ENT -Likely has grown out secondary to uncontrolled blood sugars with A1c 14.3 -Blood cultures TD Uncontrolled DM Improved sugars with Levemir 40 units twice daily with SS, continue to monitor DVT ppx-low risk, ambulate.
[2018-06-22] MEDS ORDERED: Pharmacy Ordered Lab Info OTHER ONE (22:45)
[2018-06-23] MEDS: Vancomycin Inj 1,750 MG in Sodium Chlor 0.9% Inj 500 ML IV.SIG SCH ×2 (00:19→12:21)
[2018-06-23] MEDS: Piperacil/Tazo 3.375 GM Premix 3.375 GM/50 ML PIGGYBACK IV.SIG SCH ×2 (04:01→11:19)
[2018-06-23] MEDS: Insulin NovoLOG Aspart Correctional Sugar Inj SQ SCH ×4 (08:29→21:51)
[2018-06-23] MEDS: Senna/Docusate Sodium 8.6/50 MG Tablet PO SCH ×3 (09:46→21:50)
[2018-06-23] MEDS: Insulin Detemir Inj 1,000 UNIT/10 ML Vial SQ SCH ×2 (09:46→21:45)
[2018-06-23] MEDS: Gabapentin 300 MG Capsule PO SCH ×3 (09:46→17:56)
--- NOTE | 2018-06-23 16:12 | P.DCO ---
- Diagnosis (1) Abscess, neck Status: Acute - Home Health Nursing Order: Wound care and dressing changes Instructions: Change iodoform packing to neck wound twice daily - Case Management Consult Case Management Consult-Home Health: Yes - Certification I have seen patient Tulio Tipton on 06/23/18. My clinical findings support the need for the requested home health care services because: Limited ability to care for self I certify that my clinical findings support that this patient is homebound because: Post-op weakness
--- NOTE | 2018-06-23 19:11 | P.DS ---
Date of admission: 06/18/18 20:38 Primary care physician: No Primary Care Physician Brief History from admission: 57yo M w h/o DM presented with c/o left neck abscess for 7 days. It started out as a pimple which he tried to pop,but nothing came out, subsequently it crusted and increased in size with associated redness and pain.Redness has been spreading upwards. He denies fever/chills. No h/o IVDU. ROS is negative. On presentation to ER, patient noted to be hyperglycemic at 423mg/dl, mild hyponatremia, mild microcytic anemia. CT neck revealed an abscess. IV Vanc started and patient admitted to med-surg floor. DS: Diagnosis - Discharge Diagnosis (1) Abscess, neck Status: Acute DS: Medications - Discharge Medications Prescriptions: doxycycline hyclate 100 mg PO BID #20 cap insulin detemir U-100 [Levemir U-100 Insulin] 40 unit SUBCUT BID #1 vial insulin syringe-needle U-100 #100 each DS: Summary Hospital Course: Patient was admitted, start antibiotics. Ultimately underwent I&D of left neck , wound culture grew out MRSA. Infection likely grown due to uncontrolled blood sugars. Blood sugars much better controlled with high-dose Levemir. Patient has been maximal benefit from hospitalization clinically stable for discharge. - Time Spent with Patient Total time spent providing and/or coordinating discharge services: Less than 30 minutes - Quality: VTE Deep Vein Thrombosis/Pulmonary Embolism Present on Admission: No Exam Vital signs: Vital Signs 06/22/18 20:00 06/23/18 00:00 06/23/18 08:00 Temperature 98.5 F 98.4 F 98.3 F Pulse Rate 77 72 77 Respiratory Rate 20 20 17 Blood Pressure 142/70 H 112/59 L 158/74 H Pulse Oximetry 96 95 96 06/23/18 12:00 06/23/18 16:00 Temperature 98.4 F 98.8 F Pulse Rate 76 79 Respiratory Rate 17 16 Blood Pressure 152/72 H 168/80 H Pulse Oximetry 98 96 Intake & Output 06/23/18 06/23/18 06/24/18 06:59 18:59 06:59 Intake Total 567.5 / 567.5 1617.5 / 1617.5 Balance 567.5 / 567.5 1617.5 / 1617.5 Weight 84.3 kg Intake: IV 567.5 / 567.5 617.5 / 617.5 Zosyn 3.375 GM Premix 3.375 gm 50 / 50 100 / 100 In 50 ml @ 100 mls/hr IV.SIG Q8H [facility] Rx#:[id number] Vancomycin Inj 1,750 MG In NS 517.5 / 517.5 517.5 / 517.5 Inj 500 ML @ 250 mls/hr IV.SIG Q12H [facility] Rx#:[id number] Oral 1000 / 1000 Other: # Voids 2 5 Date of Last Bowel Movement 06/20/18 # Bowel Movements 1 Results Procedures completed during hospitalization: Status post I&D of the left neck Labs on day of discharge: Labs from last 24 hours 06/23/18 06/23/18 06/23/18 17:36 11:45 08:27 POC Glucose 232 H 176 H 137 H Vancomycin Trough 06/23/18 06/22/18 00:15 19:59 POC Glucose 214 H Vancomycin Trough 16.1 H - Impressions ITS Impressions Soft Tissue Neck CT 06/18/18 17:46 CONCLUSION: 1. Superficial fluid collection with associated surrounding induration of the left side of the neck as described. CT features are typical of abscess in the proper clinical setting. There is associated mild hyperemia, including a slightly engorged vessel within the collection. 2. Left greater than right carotid atherosclerosis. There is an approximately 50% stenosis of the left common carotid artery. 3. Sphenoid sinusitis. Discharge Plan - Discharge Disposition Patient Disposition: W/Home Health Service - Discharge Condition Condition: Stable - Discharge Order Discharge Orders: Discharge Order (Routine); Ordered 06/23/18 Ordered By: John Cee - Discharge Details Discharge Comment: DC once home health is setup - Physicians Team Primary Care Provider: Primary Care Kulwant,No Attending Provider: John Cee Other Providers: Shai Lr MD ; Jostin Oropeza MD
[2018-06-24 06:39] LABS: Blood Urea Nitrogen 10 mg/dL (7-18); Glomerular Filtration Rate Greater Than 89 mL/min (>89)
[2018-06-24] MEDS: Insulin NovoLOG Aspart Correctional Sugar Inj SQ SCH ×3 (08:09→17:49)
[2018-06-24] MEDS: Gabapentin 300 MG Capsule PO SCH ×3 (08:41→17:49)
[2018-06-24] MEDS: Senna/Docusate Sodium 8.6/50 MG Tablet PO SCH (08:42)
[2018-06-24] MEDS: Insulin Detemir Inj 1,000 UNIT/10 ML Vial SQ SCH (08:42)
[2018-06-24] MEDS ORDERED: Pharmacy Ordered Lab Info OTHER ONE (11:45)
--- NOTE | 2018-06-24 12:10 | P.DCO ---
Diagnosis (1) Abscess, neck: Status: Acute Home Health Nursing Order: Wound care and dressing changes Instructions: Change iodoform packing to neck wound daily for 7 days Follow-up with Dr. Oropeza, general surgery Case Management Consult Case Management Consult-Home Health: Yes I have seen patient Tulio Tipton on 06/24/18. My clinical findings support the need for the requested home health care services because: Infection with risk of complications I certify that my clinical findings support that this patient is homebound because: Post-op weakness
[2018-06-24 12:14] VITALS: PULSE 82; O2SAT 96
--- NOTE | 2018-06-24 15:27 | P.PNIM ---
Subjective Interval history: Reports still some neck pain and [place] not lasting the entire 4 hours. Asking for some ibuprofen. Physical Exam Vital signs: Last Vital Signs Temp 98.5 F 06/24/18 12:00 Pulse 82 06/24/18 12:00 Resp 17 06/24/18 12:00 BP 146/75 H 06/24/18 12:00 Pulse Ox 96 06/24/18 12:00 Intake & Output 06/22/18 06/23/18 06/24/18 06/25/18 06:59 06:59 06:59 06:59 Intake Total 2685.0 / 2685.0 2635.0 / 2635.0 1817.5 / 1817.5 Output Total 5 / 5 Balance 2685.0 / 2685.0 2630.0 / 2630.0 1817.5 / 1817.5 Weight 87.9 kg 84.3 kg 85.9 kg Narrative: Well-nourished well-developed white male in no acute distress Neckwound bandage surrounding area clean dry and intact Cardiovascular regular rate and rhythm Lungs clear to auscultation Alert and oriented x3 Results Labs CBC & Chem 7: 06/19/18 08:45 06/24/18 05:43 Labs: Microbiology 06/18/18 18:00 Blood - Peripheral Aerobic Blood Culture - Final No growth in 5 days 06/18/18 18:00 Blood - Peripheral Anaerobic Blood Culture - Final No growth in 5 days 06/18/18 17:55 Blood - Peripheral Aerobic Blood Culture - Final No growth in 5 days 06/18/18 17:55 Blood - Peripheral Anaerobic Blood Culture - Final No growth in 5 days Procedures Procedures: Status post I&D of the left neck Assessment and Plan (1) Abscess, neck: Code(s): L02.11 - Cutaneous abscess of neck Status: Acute Plan 57yo M with history of diabetes mellitus who presented with anterior neck abscess for 1 week. Anterior neck abscess- -S/P I & D on 06/22 with general surgery. Follow-up as outpatient with Dr. Oropeza -Wound culture with MRSA, on vancomycin, stop zosyn, upon discharge switch over to doxycycline Blood cultures no growth to date Uncontrolled DM type II, insulin-dependent Better controlled on Levemir 40 units twice daily with SSI, continue to monitor Obesity with BMI greater than 30weight loss counseling Discharge Planning: Awaiting insurance to authorize home health care for local wound care with iodoform packing daily Progress Note: Quality VTE Deep Vein Thrombosis/Pulmonary Embolism Present on Admission: No
[2018-06-24] MEDS ORDERED: Ibuprofen 400 MG Tablet PO SCH (16:00)
[2018-06-24 16:34] VITALS: BP 147/75; RESP 18; TEMP 98.3
== END 2018-06-24 19:45 | disposition home health service (06) ==
LOC: PHED 16:46 → PHEDA 16:46 → PH3 23:48 → N07 06-21 18:24
PROVIDERS: ADMIT Hospitalist; ATTEND Hospitalist
DX: Z68.30 Body mass index [BMI] 30.0-30.9, adult; D50.9 Iron deficiency anemia, unspecified; E87.1 Hypo-osmolality and hyponatremia; Z88.1 Allergy status to other antibiotic agents; Z79.4 Long term (current) use of insulin; B95.62 Methicillin resistant Staphylococcus aureus infection as the cause of diseases classified elsewhere; L02.11 Cutaneous abscess of neck; J32.3 Chronic sphenoidal sinusitis; I65.23 Occlusion and stenosis of bilateral carotid arteries; E66.9 Obesity, unspecified; E11.65 Type 2 diabetes mellitus with hyperglycemia
CPT/HCPCS: 70491; 80048; 80053; 80202; 82565; 82948; 82962; 83036; 83605; 84520; 85025; 85610; 85730; 86403; 87040; 87070; 87147; 87186; 87205; 90765; 90775; 93005; 96365; 96366; 96367; 96368; 96372; 96375; 96376; 99285; G0378; J1100; J1815; J2175; J2270; J2405; J2543; J3010; J3370; J7030; J7040; J7050; Q9967